=== PATIENT | male | born 1960 | race Caucasian/White ===

== ENCOUNTER → 2016-09-30 | Outpatient (CLI) | payer OTHER ==
[2016-09-30 15:45] LABS: HEMOGLOBIN 13.2 gm/dl (14.0-17.5); RED BLOOD COUNT 4.52 M/UL (4.20-5.50)
== END ==
LOC: LAB 14:45
PROVIDERS: Emergency Medicine
DX: B37.0 Candidal stomatitis (principal); E11.42 Type 2 diabetes mellitus with diabetic polyneuropathy; E11.65 Type 2 diabetes mellitus with hyperglycemia; E78.2 Mixed hyperlipidemia; G31.84 Mild cognitive impairment of uncertain or unknown etiology; I10 Essential (primary) hypertension; J20.9 Acute bronchitis, unspecified; J45.21 Mild intermittent asthma with (acute) exacerbation
CPT/HCPCS: 36415; 71020; 80053; 85027

== ENCOUNTER → 2020-08-13 | Outpatient (CLI) | payer OTHER ==
[~2020-08-13] MED LIST: ASPIRIN EC81 MG PO; B COMPLEX1 EACH PO; DULOXETINE HCL60 MG PO; FISH OIL 1,0001 EACH PO; HYDROXYCHLOROQ200 MG PO; JANUVIA50 MG PO; LANTUS100 UNIT/1 SC; LEVOCETIRIZINE D5 MG PO; NOVOLOG 10100 UNITS2 INJ; OXYBUTYNIN CHLO10 MG PO; PRAVASTATIN SOD40 MG PO; SILDENAFIL20 MG PO
[2020-08-13 08:08] LABS: HEMOGLOBIN 13.7 gm/dl (14.0-17.5); RED BLOOD COUNT 4.59 M/UL (4.20-5.50)
[2020-08-13 08:34] LABS: BUN/CREATININE RATIO 16 (0-10)
[2020-08-14 12:14] LABS: CREATININE, URINE 138.6 mg/dL (Not Estab.)
[2020-08-15 13:11] LABS: CHOLESTEROL, TOTAL 196 mg/dL (100-199); HDL SIZE 8.6 nm (>=9.2); HDL-C 41 mg/dL (>39); HDL-P (TOTAL) 25.6 umol/L (>=30.5); LARGE HDL-P 3.2 umol/L (>=4.8); LARGE VLDL-P 5.8 nmol/L (<=2.7); LDL SIZE 20.3 nm (>20.5); LDL SIZE 20.3 nm (>=20.8); LDL-C 125 mg/dL (0-99); LDL-P 1936 nmol/L (<1000); LP-IR SCORE 76 (<=45); SMALL LDL-P 1318 nmol/L (<=527); TRIGLYCERIDES 168 mg/dL (0-149); VLDL SIZE 49.8 nm (<=46.6)
== END ==
LOC: LAB 06:53
PROVIDERS: Emergency Medicine
DX: I25.10 Atherosclerotic heart disease of native coronary artery without angina pectoris (principal); I10 Essential (primary) hypertension; E11.42 Type 2 diabetes mellitus with diabetic polyneuropathy; E11.641 Type 2 diabetes mellitus with hypoglycemia with coma; E11.65 Type 2 diabetes mellitus with hyperglycemia; E11.69 Type 2 diabetes mellitus with other specified complication; E29.1 Testicular hypofunction; E78.2 Mixed hyperlipidemia; G31.84 Mild cognitive impairment of uncertain or unknown etiology; G89.4 Chronic pain syndrome; H65.192 Other acute nonsuppurative otitis media, left ear; H91.8X2 Other specified hearing loss, left ear; J20.8 Acute bronchitis due to other specified organisms; J45.21 Mild intermittent asthma with (acute) exacerbation; J98.01 Acute bronchospasm; K04.7 Periapical abscess without sinus; K74.69 Other cirrhosis of liver; R94.31 Abnormal electrocardiogram [ECG] [EKG]
CPT/HCPCS: 36415; 80053; 82043; 82570; 83036; 84443; 84550; 85025; 93005

== ENCOUNTER → 2020-08-22 | Outpatient (CLI) | payer OTHER | LOC: CT 09:51 | DX: D49.519 Neoplasm of unspecified behavior of unspecified kidney (principal); K76.0 Fatty (change of) liver, not elsewhere classified; R16.1 Splenomegaly, not elsewhere classified | CPT/HCPCS: 74160; Q9967 ==

== ENCOUNTER 2020-11-25 13:40 | Observation (INO) | payer OTHER ==
[~2020-11-25] VITALS: Ht 182.9 cm; Wt 142.9 kg
[~2020-11-25 13:40] MED LIST changes: -ASPIRIN EC81 MG PO; -FISH OIL 1,0001 EACH PO
[2020-11-25 14:54] LABS: HEMOGLOBIN 13.3 gm/dl (14.0-17.5); RED BLOOD COUNT 4.47 M/UL (4.20-5.50); WHITE BLOOD COUNT 8.2 K/UL (4.5-11.0)
[2020-11-25 15:12] LABS: BUN/CREATININE RATIO 17 (0-10)
[2020-11-25] MEDS ORDERED: FISH OIL 1,0001 EACH PO (17:27)
[2020-11-25] MEDS ORDERED: ASPIRIN EC81 MG PO (17:28)
[2020-11-26 02:19] LABS: WHITE BLOOD COUNT 6.3 K/UL (4.5-11.0)
[2020-11-26 02:20] LABS: HEMOGLOBIN 11.1 gm/dl (14.0-17.5); RED BLOOD COUNT 3.76 M/UL (4.20-5.50)
[2020-11-26 02:43] LABS: BUN/CREATININE RATIO 17 (0-10)
--- NOTE | 2020-11-26 17:00 | NUR ---
1600 DISCUSSING DISCHARGE ORDERS WITH PT GAVE HIM ORDER FOR EVENT MONITOR AND HEM STATED THAT HE DIDNT NEED IT THAT HE WAS GOING TO HIS REGULAR [employer]
== END 2020-11-26 16:33 | disposition home or self-care (01) ==
LOC: ER1 13:40 → CDU 17:00 → MED SURG 4 18:05
PROVIDERS: Emergency Medicine; Physician Assistant; ADMIT Internal Medicine
DX: R42 Dizziness and giddiness (principal); M25.562 Pain in left knee; M25.552 Pain in left hip; M25.572 Pain in left ankle and joints of left foot; E11.9 Type 2 diabetes mellitus without complications; I10 Essential (primary) hypertension; D64.9 Anemia, unspecified; E87.1 Hypo-osmolality and hyponatremia; J45.909 Unspecified asthma, uncomplicated; M06.9 Rheumatoid arthritis, unspecified; M79.7 Fibromyalgia; I25.10 Atherosclerotic heart disease of native coronary artery without angina pectoris; M19.90 Unspecified osteoarthritis, unspecified site; G47.33 Obstructive sleep apnea (adult) (pediatric); E66.01 Morbid (severe) obesity due to excess calories; Z68.41 Body mass index [BMI] 40.0-44.9, adult; Z20.822 Contact with and (suspected) exposure to COVID-19; Z79.4 Long term (current) use of insulin; Z79.82 Long term (current) use of aspirin; Z79.899 Other long term (current) drug therapy; Z95.5 Presence of coronary angioplasty implant and graft; Z88.0 Allergy status to penicillin; Z88.1 Allergy status to other antibiotic agents; Z88.8 Allergy status to other drugs, medicaments and biological substances; Z85.528 Personal history of other malignant neoplasm of kidney; W19.XXXA Unspecified fall, initial encounter; Y92.019 Unspecified place in single-family (private) house as the place of occurrence of the external cause
CPT/HCPCS: 0240U; 36415; 70450; 71045; 72125; 73502; 73564; 73610; 80048; 80053; 82550; 82553; 82962; 83036; 83605; 83874; 84484; 85025; 85379; 87040; 93005; 96374; 96375; 97161; 99285; G0378; J2270; J2405

== ENCOUNTER 2021-04-01 12:34 | Emergency (ER) | payer OTHER ==
[~2021-04-01 12:34] MED LIST changes: +ASPIRIN EC81 MG PO; +FISH OIL 1,0001 EACH PO
== END 2021-04-01 13:51 | disposition left against medical advice (07) ==
LOC: ER1 12:34
DX: Z53.21 Procedure and treatment not carried out due to patient leaving prior to being seen by health care provider (principal)

== ENCOUNTER → 2021-05-23 | Outpatient (CLI) | payer OTHER | LOC: ECHO 10:21 | DX: I25.10 Atherosclerotic heart disease of native coronary artery without angina pectoris (principal); R06.02 Shortness of breath; R00.2 Palpitations | CPT/HCPCS: ECHO; 93306 ==

== ENCOUNTER → 2021-05-29 | Outpatient (CLI) | payer OTHER ==
[2021-05-29 10:19] LABS: HEMOGLOBIN 14.1 gm/dl (14.0-17.5); RED BLOOD COUNT 4.7 M/UL (4.20-5.50)
[2021-05-29 10:50] LABS: BUN/CREATININE RATIO 13 (0-10)
[2021-05-30 10:14] LABS: CREATININE, URINE 108.6 mg/dL (Not Estab.)
[2021-05-31 13:13] LABS: CHOLESTEROL, TOTAL 192 mg/dL (100-199); HDL SIZE 8.6 nm (>=9.2); HDL-C 38 mg/dL (>39); HDL-P (TOTAL) 25.9 umol/L (>=30.5); LARGE HDL-P 2.6 umol/L (>=4.8); LARGE VLDL-P 4.3 nmol/L (<=2.7); LDL SIZE 20.2 nm (>20.5); LDL SIZE 20.2 nm (>=20.8); LDL-C 124 mg/dL (0-99); LDL-P 1877 nmol/L (<1000); LP-IR SCORE 80 (<=45); SMALL LDL-P 1164 nmol/L (<=527); TRIGLYCERIDES 166 mg/dL (0-149); VLDL SIZE 52.7 nm (<=46.6)
== END ==
LOC: LAB 07:45
PROVIDERS: Emergency Medicine
DX: I12.9 Hypertensive chronic kidney disease with stage 1 through stage 4 chronic kidney disease, or unspecified chronic kidney disease (principal); E11.22 Type 2 diabetes mellitus with diabetic chronic kidney disease; N18.30 Chronic kidney disease, stage 3 unspecified; E78.2 Mixed hyperlipidemia; M79.7 Fibromyalgia; E11.65 Type 2 diabetes mellitus with hyperglycemia; R53.83 Other fatigue
CPT/HCPCS: 36415; 80053; 80061; 82043; 82570; 83036; 83704; 84443; 84550; 85025

== ENCOUNTER → 2021-05-31 | Outpatient (CLI) | payer OTHER | LOC: KOH-I 09:41 | DX: I73.89 Other specified peripheral vascular diseases (principal); Z88.8 Allergy status to other drugs, medicaments and biological substances; Z88.0 Allergy status to penicillin; Z88.1 Allergy status to other antibiotic agents | CPT/HCPCS: 93925 ==

== ENCOUNTER → 2021-11-13 | Outpatient (CLI) | payer OTHER | LOC: NM 09:22 | DX: I25.10 Atherosclerotic heart disease of native coronary artery without angina pectoris (principal); R06.02 Shortness of breath; R07.9 Chest pain, unspecified | CPT/HCPCS: 78452; 93017; A9502; J2785 ==